=== PATIENT | male | born 1955 | race African-American/Black ===

== ENCOUNTER 2018-07-06 03:09 | Emergency (ER) | payer MEDICAID ==
[~2018-07-06] VITALS: Ht 165.1 cm; Wt 70.0 kg
[~2018-07-06 03:09] MED LIST: BENZ1TAB7 PO; DIPH50TA19; GLIP5TAB3 PO; HALOPERIDOL; OMEP20CA4 PO; SERT50TA12 PO; SIMV20TA2 PO; TOPXL5; metformin PO
[2018-07-06] MEDS ORDERED: KETOROLAC 15MG/ML VIAL IV ONE (07:15)
[2018-07-06 08:10] LABS: BASOPHILS % 0.7 % (0.0-2.0); EOSINOPHILS % 3.1 % (0.0-5.0); HEMATOCRIT. 42.5 % (42.0-52.0); HEMOGLOBIN. 14.6 g/dL (14.0-18.0); LYMPHOCYTES % 20.1 % (20.0-50.0); MEAN CORPUSCULAR HEMOGLOBIN 29.4 pg (28.0-32.0); MEAN CORPUSCULAR VOLUME 85.4 fL (80.0-94.0); MEAN PLATELET VOLUME 8.1 fl (7.4-10.4); MONOCYTES % 9.4 % (2.0-8.0); NEUTROPHILS % 66.7 % (40.0-76.0); PLATELET 217 x1000/uL (130-400); RED BLOOD CELL COUNT 4.98 mill/uL (4.7-6.1); RED CELL DISTRIBUTION WIDTH 14.2 % (11.6-14.6)
[2018-07-06 08:15] LABS: CHLORIDE 104 mEq/L (98-107)
[2018-07-06 08:17] LABS: INR 1.1; PROTHROMBIN TIME 10.6 sec (9.1-11.1)
[2018-07-06 08:20] LABS: ETHANOL BLOOD < 10 mg/dL
[2018-07-06 10:14] LABS: *AMPHETAMINES SCREEN URINE NEGATIVE (NEGATIVE); *BARBITURATES SCREEN URINE NEGATIVE (NEGATIVE)
[2018-07-06 10:15] LABS: *BENZODIAZEPINES SCREEN URINE NEGATIVE (NEGATIVE); *COCAINE SCREEN URINE PRESUMTIVE POSITIVE (NEGATIVE); METHADONE URINE SCREEN NEGATIVE (NEGATIVE); OPIATES URINE SCREEN NEGATIVE (NEGATIVE); PHENCYCLIDINE URINE SCREEN NEGATIVE (NEGATIVE)
[2018-07-06 10:16] LABS: CANNABINOID URINE SCREEN NEGATIVE (NEGATIVE)
[2018-07-06] MEDS ORDERED: ASPIRIN 81MG TABLET PO ONE (11:30)
[2018-07-06 12:15] VITALS: BP 144/90
== END 2018-07-06 12:26 | disposition home or self-care (01) ==
LOC: ER 03:09
DX: I70.298 Other atherosclerosis of native arteries of extremities, other extremity (principal); R22.31 Localized swelling, mass and lump, right upper limb; M79.641 Pain in right hand; K21.9 Gastro-esophageal reflux disease without esophagitis; G40.909 Epilepsy, unspecified, not intractable, without status epilepticus; F20.9 Schizophrenia, unspecified; E11.9 Type 2 diabetes mellitus without complications; F17.200 Nicotine dependence, unspecified, uncomplicated; F10.21 Alcohol dependence, in remission; F14.10 Cocaine abuse, uncomplicated; Z85.028 Personal history of other malignant neoplasm of stomach; Z90.3 Acquired absence of stomach [part of]; Z79.84 Long term (current) use of oral hypoglycemic drugs
CPT/HCPCS: 36415; 71045; 73130; 80053; 80305; 85025; 85610; 93922; 93971; 96374; 99284; G0482; J1885